=== PATIENT | male | born 2000 | race Hispanic/Latino ===

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

== ENCOUNTER 2024-10-18 12:58 | Outpatient (CLI) | payer OTHER, SELFPAY ==
--- NOTE | ~2024-10-18 | XR_ITS ---
EXAMINATION: XR chest 2V 10/18/2024 13:11 INDICATION: Atypical chest pain PROCEDURE: 2 view chest COMPARISON: Comparison to multiple prior studies sequentially, with oldest reviewed study dated 02/2021. FINDINGS: The lungs are clear. The cardiomediastinal silhouette is within normal limits. There are no pleural effusions. There is no pneumothorax suspected. IMPRESSION: 1: NO ACUTE CARDIOPULMONARY DISEASE. Reviewed, dictated and finalized at location A.
--- OUTSIDE RECORDS SUMMARY | 2024-10-18 14:23 | XMS_ITS | Clinical Summary ---
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 Gender Identity Not on file Sexual Orientation Not on file Plan of Treatment Health Maintenance Due Date Last Done Comments Hepatitis C Virus (HCV) Screening 2002 Meningococcal B Immunization (1 of 2 - Standard) 2018 Influenza Immunization (#1) 2024 08/01/2016 SARS-COV-2 Immunization ( season) 2024 Respiratory Syncytial Virus (RSV) Immunization (Adult) (1 - 1-dose 75+ series) 2077 DTaP/Tdap/Td Immunization Discontinued 2015, 04/18/2014, 06/21/2013 Hepatitis B Immunization Completed 016, 01/19/2015, 12/20/2014 Measles Mumps Rubella (MMR) Immunization Discontinued 11/30/2015 TdaP Immunization Completed 11/30/2015 Varicella Immunization Discontinued 7, 11/30/2015 Human Papillomavirus (HPV) Immunization Completed 02/19/2018, 03/11/2017 Polio (IPV) Immunization Discontinued 018, 03/11/2017, 08/01/2016 Hepatitis A Immunization Discontinued 020, 02/19/2018 Meningococcal Immunization (ACWY) Completed 07/04/2020, 11/30/2015 Pneumococcal Immunization Combined Aged Out No longer eligible based on patient's age to complete this topic Rotavirus Immunization Aged Out No lo nger eligible based on patient's age to complete this topic
--- OUTSIDE RECORDS SUMMARY | 2024-10-18 14:23 | XMS_ITS | Clinical Summary ---
Author Organization [facility] Address [address] [place] [address] Care Team Providers Care Pin Inserter Regulator Name Role Phone Sudhir Ford MD Primary Care Provider [phone] Source Comments [facility],non-owned Affiliates and Associated Physician Practices is amultiple site organization consisting of ambulatory clinics and hospital sitesin [place], [place], [place] and [place]. This disclosure is being madepursuant to the Care Everywhere program and may not contain all information available regarding this patient. Last updated 18.[facility] Allergies Active Allergy Reactions Criticality Noted Date Comments Penicillins Rash Medium 10/01/2016 Medications * Be aware that medications may not be up to date on this document. Alwaysverify current medications with the patient. Medication Sig Dispensed Refills Start Date End Date Status famotidine (Pepcid) 40 MG tabletIndications:Gas troesophageal reflux disease without esophagitis Take 1 (one) tablet by mouth at bedtime 40 tablet 4 08/11/2022 Active Active Problems No known active problems Social History Tobacco Use Types Packs/Day Years Used Date Smoking Tobacco: Never Smokeless Tobacco: Never Tobacco Cessation:Counseling Given: Not Answered Alcohol Use Standard Drinks/Week Comments No 0 (1 standard drink = 0.6 oz pur e alcohol) Sex and Gender Information Value Date Recorded Sex Assigned at Not on file Gender Identity Male 05/07/2020 12:40 PM CDT Sexual Orientation Not on file Last Filed Vital Signs Vital Sign Reading Time Taken Comments Blood Pressure 101/67 08/11/2022 3:[address]LL[address] OPERATOR Pulse 82 08/11/2022 3:[address] ROLLER OPERATOR Temperature 36.8 C (98.2 F) 04/04/2020 11:35 AM CDT Respiratory Rate 16 04/04/2020 11:3 5 AM CDT Oxygen Saturation 97% 08/11/2022 3:[address] ROLLER OPERATOR Inhaled Oxygen Concentration - - Weight 72.9 kg (160 lb 11.2 oz) 08/11/2022 3:[address] ROLLER OPERATOR Height 167.6 cm (5' 6 ) 08/11/2022 3:[address] ROLLER OPERATOR Body Mass Index 25.94 08/11/2022 3:[address] ROLLER OPERATOR Plan of Treatment Health Maintenance Due Date Last Done Comments HIV SCREENING 2017 HPV VACCINE (1 - Male 3-dose series) 2017 MENINGOCOCCAL (Group B) VACC INE SHARED DECISION-MAKING (1 of 2 - Standard) 2018 HEPATITIS C SCREENING 11/05/2020 DTAP/TDAP/TD VACCINES (1 - Tdap) 2021 HEPATITIS B VACCINE (1 of 3 - 19+ 3-dose series) 2021 COVID-19 VACCINE (1 - 2023-2 5 season) 2024 DEPRESSION SCREENING 07/13/2024 INFLUENZA VACCINE (Season Ended) 2025 ZOSTER VACCINE (1 of 2) 2052 HIB VACCINE Aged Out No longer eligi ble based on patient's age to complete this topic MENINGOCOCCAL GROUPS A/C/Y/W VACCINE Aged Out No longer eligible b ased on patient's age to complete this topic PNEUMOCOCCAL VACCINE Aged Out No long er eligible based on patient's age to complete this topic Care Teams Pin Inserter Regulator Relationship Specialty Start Date End Date Sudhir Ford MD PCP - General Corn Shucker 10/01/16
== END 2024-10-18 12:59 | disposition home or self-care (01) ==
PROVIDERS: PCP Internal Medicine Infectious Disease; Visit Provider Internal Medicine Infectious Disease
DX: R07.89 Other chest pain (principal); J45.909 Unspecified asthma, uncomplicated
CPT/HCPCS: 71046